=== PATIENT | female | born 2005 | race Caucasian/White ===

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

== ENCOUNTER 2023-01-19 06:06 | Outpatient (CLI) | payer BC, MEDICAID, SELFPAY ==
--- NOTE | 2023-01-19 06:30 | US_ITS ---
WS: [id number] INDICATION: Palpable nodule behind left ear TECHNIQUE: Ultrasound soft tissue area of concern FINDINGS: Ultrasound palpable area posterior to left ear. No suspicious cystic or solid lesions. Normal underlying scalp soft tissues. Incidental tiny lymph no de measuring 6 mm. US/US soft tissue head neck [id number] IMPRESSION: Incidental tiny lymph node measuring 6mm in this area. No other ronn picious findings.
== END 2023-01-19 06:07 | disposition home or self-care (01) ==
PROVIDERS: PCP Nurse Practitioner; Visit Provider Nurse Practitioner
DX: R59.1 Generalized enlarged lymph nodes (principal)
CPT/HCPCS: 76536

== ENCOUNTER → 2023-06-20 09:30 | Outpatient (BNVA) | payer BC, MEDICAID, SELFPAY | PROVIDERS: PCP Nurse Practitioner; Visit Provider Nurse Practitioner Women's Health | DX: Z11.3 Encounter for screening for infections with a predominantly sexual mode of transmission (principal) | CPT/HCPCS: 87491; 87591 ==

== ENCOUNTER → 2024-01-11 09:08 | Outpatient (BNVA) | payer BC, MEDICAID, SELFPAY | PROVIDERS: PCP Nurse Practitioner Family; Visit Provider Nurse Practitioner Family | DX: F41.9 Anxiety disorder, unspecified (principal); D64.9 Anemia, unspecified; K59.04 Chronic idiopathic constipation; N76.0 Acute vaginitis; B96.89 Other specified bacterial agents as the cause of diseases classified elsewhere; Z79.899 Other long term (current) drug therapy; Z13.6 Encounter for screening for cardiovascular disorders | CPT/HCPCS: 80053; 80061; 81025; 82728; 83036; 83550; 84443; 85025; 87070; 87205 ==

== ENCOUNTER → 2024-01-17 08:19 | Outpatient (BNVA) | payer BC, MEDICAID, SELFPAY | PROVIDERS: PCP Nurse Practitioner Family; Visit Provider Nurse Practitioner Family | DX: K59.04 Chronic idiopathic constipation (principal); Z79.899 Other long term (current) drug therapy | CPT/HCPCS: 80053; 84439; 84443 ==

== ENCOUNTER 2024-01-29 06:07 | Outpatient (CLI) | payer BC, MEDICAID, SELFPAY ==
--- NOTE | 2024-01-29 06:45 | US_ITS ---
WS: [id number] Complete ABDOMINAL ULTRASOUND HISTORY: R74.8 - Abnormal levels of other serum enzymes COMPARISON: None available. Liver: 16.6 cm in length. Normal size liver and echogenicity. No bile duct dilatation or mass. Portal Vein: Normal hepatopetal flow with monophasic waveform. Gallbladder: Normally distended gallbladder with no stones or wall thickening. CBD: 0.3 cm Pancreas: Normal size and echogenicity. Right kidney: 11.2 cm x 5.6 x 5.2 cm. Cortex:1.0 cm. Normal size and echogenicity. No hydronephrosis or mass. Mild splitting of the renal pelvis. No obstr uction or hydronephrosis. Left kidney: 10.7 cm x 5.8 cm x 4.3 cm. Cortex: 1.1 cm. Normal size and echogenicity. No hydronephrosis or mass. Spleen: 11.3 cm. Normal size and echogenicity. Aorta and IVC: Unremarkable abdominal aorta and IVC. US/US abdomen complete* [id number] Impression: Normal complete abdomen ultrasound.
== END 2024-01-29 06:08 | disposition home or self-care (01) ==
LOC: RAD 06:07
PROVIDERS: PCP Nurse Practitioner Family; Visit Provider Nurse Practitioner Family
DX: R74.8 Abnormal levels of other serum enzymes (principal); R53.83 Other fatigue
CPT/HCPCS: 76700

== ENCOUNTER → 2024-02-07 08:23 | Outpatient (BNVA) | payer BC, MEDICAID, SELFPAY | PROVIDERS: PCP Nurse Practitioner Family; Visit Provider Nurse Practitioner Family | DX: R74.8 Abnormal levels of other serum enzymes (principal); E04.1 Nontoxic single thyroid nodule; D58.2 Other hemoglobinopathies; Z79.899 Other long term (current) drug therapy | CPT/HCPCS: 80053; 81003; 82306; 82308; 82310; 82607; 83970; 84100; 85025; 86376 ==

== ENCOUNTER 2024-02-14 06:01 | Outpatient (CLI) | payer BC, MEDICAID, SELFPAY ==
--- NOTE | 2024-02-14 06:15 | US_ITS ---
WS: [id number] THYROID ULTRASOUND HISTORY: E04.1 - Nontoxic single thyroid nodule COMPARISON: None available. Right lobe: 1.5 cm x 1.5 cm x 5.0 cm (w x ap x l). Volume: 5.4 cm3. Normal sized thyroid. There is a group of what appears to be colloid cysts along the mid to lower RIG HT thyroid. The entire cluster measures 0.8 x 1.9 x 0.5 cm. There are small comet tail artifacts. No solid mass or increased vascularity. Left lobe: 1.4 cm x 1.0 cm x 4.8 cm (w x ap x l). Volume: 3.2 cm3. Numerous scattered hypoechoic nodules with comet tail artifacts throughout the gland. These are all s ubcentimeter. Isthmus: 0.2 cm. US/US thyroid [id number] IMPRESSION: 1. TI-RADS 2. 2. Bilateral colloid cyst within each thyroid lobe. No additional ultrasound e valuation necessary.
== END 2024-02-14 06:02 | disposition home or self-care (01) ==
LOC: RAD 06:01
PROVIDERS: PCP Nurse Practitioner Family; Visit Provider Nurse Practitioner Family
DX: E04.1 Nontoxic single thyroid nodule (principal)
CPT/HCPCS: 76536; 87070; 87205

== ENCOUNTER 2024-03-05 06:30 | Outpatient (CLI) | payer BC, MEDICAID, SELFPAY ==
--- NOTE | 2024-03-05 07:15 | US_ITS ---
WS: [id number] US transvaginal [id number] HISTORY: R10.2 - Pelvic and perineal pain COMPARISON: None available. Uterus: 6.8 cm x 4.8 cm x 4.0 cm. Normal size anteverted uterus. No fibroid or mass. Endometrium: 0.7 cm. Normal. Right ovary: 2.6 cm x 2.4 cm x 1.5 cm. Normal size and vascularity, no cystic or solid masses. Severa l small follicles in the ovary. Left ovary: 4.3 cm x 2.6 cm x 3.7 cm. LEFT ovary slightly enlarged. There are several small follicles . The enlargement and slight nodularity may be due to a ruptured corpus luteum cyst. No free fluid. No free fluid in the cul-de-sac. US/US transvaginal [id number] IMPRESSION: 1. LEFT ovary is just slightly enlarged and lobulated. May be due to an involu ting corpus luteal cyst. If patient continues to have pain consider follow-up t ransvaginal pelvic ultrasound evaluation in 2 to 3 months. 2. Normal endometrium.
== END 2024-03-05 06:31 | disposition home or self-care (01) ==
LOC: RAD 06:30
PROVIDERS: PCP Nurse Practitioner Family; Visit Provider Nurse Practitioner Family
DX: R10.2 Pelvic and perineal pain (principal); N83.8 Other noninflammatory disorders of ovary, fallopian tube and broad ligament
CPT/HCPCS: 76830

== ENCOUNTER → 2024-04-30 09:04 | Outpatient (BNVA) | payer SELFPAY | PROVIDERS: PCP Nurse Practitioner Family; Referring Provider Nurse Practitioner Family; Visit Provider Obstetrics & Gynecology | DX: N92.6 Irregular menstruation, unspecified (principal); R39.9 Unspecified symptoms and signs involving the genitourinary system | CPT/HCPCS: 81000; 81025 ==

== ENCOUNTER → 2024-07-28 09:14 | Outpatient (BNVA) | payer OTHER, BC, SELFPAY | PROVIDERS: PCP Nurse Practitioner Family; Visit Provider Nurse Practitioner Family | DX: Z34.90 Encounter for supervision of normal pregnancy, unspecified, unspecified trimester (principal); Z3A.00 Weeks of gestation of pregnancy not specified | CPT/HCPCS: 81025; 84702; 84703 ==

== ENCOUNTER 2024-08-15 18:02 | Emergency (ER) | payer OTHER, MEDICAID, SELFPAY ==
[2024-08-15 18:13] VITALS: BP 110/71; PULSE 68; RESP 14; TEMP 26.6; O2SAT 100
[2024-08-15 20:42] LABS: Basophils % 0.3 %; Eosinophils # 0.1 10^3/uL (0.0-0.8); Eosinophils % 1.1 %; Hematocrit 43.5 % (36-47); Lymphocytes # 2.3 10^3/uL (1.5-6.5); Lymphocytes % 17.8 %; Mean Corpuscular HGB Conc 33.8 g/dL (30-55); Mean Corpuscular Hemoglobin 33.3 pg (27-33); Mean Corpuscular Volume 98.4 fl (85-98); Mean Platelet Volume 10.5 fL (7.4-10.4); Monocytes # 0.5 10^3/uL (0.2-0.9); Monocytes % 3.9 %; Neutrophils # 9.88 10^3/uL (1.8-8.0); Neutrophils % 76.5 %; Nucleated Red Blood Cells % 0 %; Platelet Count 226 10^3/cmm (157-399); Red Blood Count 4.42 10^6/uL (3.85-5.65); Red Cell Distribution Width 11.6 % (12.1-15.1); White Blood Count 12.92 10^3/uL (4.5-13.0)
[2024-08-15 21:14] LABS: Alanine Aminotransferase 13 U/L (0-33); Albumin Level 4.5 g/dL (3.5-5.2); Alkaline Phosphatase 189 U/L (35-105); Anion Gap 15.6 (5-19); Aspartate Amino Transferase 16 U/L (0-32); Blood Urea Nitrogen 7 mg/dL (6-20); Calcium 9.9 mg/dL (8.5-10.5); Carbon Dioxide 23 mmol/L (22-29); Chloride 104 mmol/L (98-107); Creatinine Clr Calc Pharmacy 185.6321; Globulin 2.9 g/dL (1.3-4.6); Glomerular Filtration Rate 157.3 mL/min (90-130); Glucose 104 mg/dL (65-115); Osmolality Calculated 286 mOsm/kg (285-295); Potassium 3.6 mmol/L (3.5-5.1); Sodium 139 mmol/L (136-145); Total Bilirubin 0.2 mg/dL (0.15-1.2); Total Protein 7.4 g/dL (6.6-8.7)
[2024-08-15 21:28] VITALS: BP 143/81; PULSE 90; RESP 18; O2SAT 100
--- NOTE | 2024-08-15 21:30 | USR_ITS ---
PROCEDURE INFORMATION: Exam: US First Trimester, Transabdominal and US , Transvaginal Exam date and time: 08/15/2024 11:24 PM Age: 18 years old Clinical indication: Lmp or gestational age (in weeks): 6w4d; Antepartum complications; ; Patient states not bleeding anymore; Additional info: Cramping/spotting x2 weeks LABS AND CLINICAL REPORTS: Gestational age (Established): 6 w 2 d Estimated due date (Established): 04/08/2025 TECHNIQUE: Imaging protocol: Real-time transabdominal obstetrical ultrasound of the maternal pelvis and a first trimester , less than 14 weeks 0 days, with image documentation. Transvaginal imaging was used for better evaluation of the fetus, adnexa, and/or cervix. COMPARISON: US abdomen complete* [id number] 01/29/2024 6:29 AM FINDINGS: GESTATION: Gestation: Live intrauterine gestation. Yolk sac is unremarkable. Embryo/ cardiac activity (BPM): 141 bpm Extra-embryonic membranes/Placenta: Small hypoechoic fluid collection adjacent to the gestational sac measuring 3 x 6 mm likely representing a subchorionic hemorrhage. Amniotic/Chorionic fluid: Amniotic and extra-amniotic fluid are normal for gestational age. BIOMETRY: Gestational age (AUA): 6 weeks and 4 days [place] rump length (CRL): 0.68 cm MATERNAL: Uterus: Unremarkable. Cervix: Cervical length measures 3.1 cm. Right ovary/adnexa: Unremarkable. Left ovary/adnexa: Obscured by lack of adequate acoustic window. Intraperitoneal space: No intraperitoneal free fluid. US/US OB <= 14 weeks fetus [id number] IMPRESSION: 1. Live intrauterine gestation with an estimated age of 6 weeks and 4 days. 2. Small subchorionic hemorrhage.
[2024-08-15 21:32] LABS: Bilirubin Urine Negative (Negative); Blood Urine Negative (Negative); Glucose Urine UA Negative (Normal); Ketones Urine Negative (Negative); Leukocyte Esterase Urine 2+ (Negative); Nitrate Urine Negative (Negative); Protein Urine Negative (Negative); Specific Gravity, Urine 1.004 (1.005-1.030); Urine Appearance Clear (CLEAR); Urine Color Yellow (Yellow); Urobilinogen Urine 0.2 mg/dL (Negative)
--- NOTE | 2024-08-15 21:32 | ED_ITS ---
HPI - Abdominal Pain 2 General: Chief Complaint: Abdominal Pain Stated Complaint: cramping 6 wk preg Time Seen by Provider: 08/15/24 21:12 Source: patient Mode of arrival: ambulatory Limitations: no limitations History of Present Illness: Patient is a 18-year-old female who presents the emergency department complaining of lower abdominal cramping and vaginal bleeding for the past 2 weeks, intermittently. Notes that the bleeding has been light, she has not been bleeding through any pads. Of note, states that she is 8 weeks based off of last normal menstrual period. States that she has seen her OB, but this was just for routine evaluation she has not had any ultrasound done. States that she tried to contact them today but was unable to get in, so she came to the ED. This is her first , she is A0. Denies any pertinent personal past medical history other than ovarian cysts. She still has her appendix and gallbladder. She does not report any specific alleviating or exacerbating factors, and overall does note that the pain is mild. MD elicited complaint: abdominal pain Pertinent past history: other (ovarian cysts) Onset (ago): week(s) (2) Pain Consistency: constant Location: RLQ, LLQ and Suprapubic Severity: mild Quality: cramping Radiation: none Migration to: no migration Exacerbating factors: nothing Relieving factors: nothing Context: other (, 8 weeks) Associated Symptoms: Reports GI cramping; Denies bloating, change in stool character, chills, constipation, diarrhea, dysuria, fever(s), hematochezia, nausea and vomiting Related Data Previous Rx's ?Medication ?Instructions ?Recorded mecobalamin (vitamin B12) 1,000 1,000 mcg sublingual D AILY 30 days 02/26/24 mcg disintegrating #30 tabs tablet,sublingual cholecalciferol (vitamin D3) 1,250 50,000 unit PO SHAUNA Y #12 caps 05/15/24 mcg (50,000 unit) capsule escitalopram oxalate 10 mg tablet See Rx Instructions .Route 05/15/24 .COMPLEX #90 tabs amoxicillin 875 mg tablet 875 mg PO BID #14 tabs 07/28 nitrofurantoin 100 mg PO BID 10 days #20 ca ps 08/16/24 monohydrate/macrocrystals 100 mg capsule (Macrobid) Allergies Allergy/AdvReac Type Severity Reaction Status Date / Time No Known Allergies Allergy Verified 08/15/24 18:19 Review of Systems 2 General: Reports: 10 or more systems reviewed and unremarkable except in HPI and below Const: Denies: fever(s), chills, change in appetite, change in weight or diaphoresis ENMT: Denies: throat pain or hoarseness Card: Denies: chest pain, palpitations or lightheadedness Resp: Denies: dyspnea, productive cough or wheezing GI: Reports: abdominal pain and GI cramping; Denies: nausea, vomiting, diarrhea, constipation, bloating, change in stool character or hematochezia : Reports: vaginal bleeding; Denies: flank pain, difficulty voiding, dysuria, urinary frequency or urinary urgency Musc: Denies: neck pain or back pain Skin/Breast: Denies: rash or new lesions Neuro: Denies: headache(s) or dizziness PFSH ED 2 PFSH: Medical History Acute bacterial sinusitis Fever blister Corpus luteum cyst of left ovary Pelvic pain Vitamin D deficiency Vaginal yeast infection Elevated hemoglobin Vaginal discharge Thyroid cyst Fatigue Elevated alkaline phosphatase level Anemia Encounter for screening for cardiovascular disorders Medication management Chronic idiopathic constipation Lower respiratory infection No pertinent past medical history neghx: htn,dm,thyroid,dvt/pe PCP: Libia Altamirano History of recurrent vaginal discharge Surgical History H/O removal of cyst (~2014) cyst on left hand, fifth finger removed Family History Family/Other Cancer great uncle, leukemia, paternal Mother Hypertension Hyperlipidemia Grandfather Stroke maternal Grandmother Hypertension maternal Hyperlipidemia maternal Diabetes maternal Denies family history of Colon cancer Ovarian cancer Breast cancer Uterine cancer Thyroid disease Social History Smoking and tobacco/nicotine status: never used tobacco/nicotine Alcohol intake: never Substance/Drug Use: never Adopted: No Lives independently: Yes Household members: family Housing: House Physical Exam 2 Const: COMMON NORMALS: no acute distress, average body habitus, patient oriented x3, no limitations, healthy appearing, alert and well nourished G ENERAL APPEARANCE: cooperative and comfortable ORIENTATION/CONSCIOUSNESS: Yes awake Eye: COMMON NORMALS: Equal, round and reactive pupils present, EOMs intact bilaterally, conjunctivae normal and normal visual calderon by confrontation C ONJUNCTIVA: Yes conjunctivae normal PUPIL: Yes Equal, round and reactive pupils present Neck/C-Spine: COMMON NORMALS: full ROM, supple, no meningeal signs and no JVD Resp: COMMON NORMALS: normal respiratory effort, No retractions, No use of accessory muscles and clear to auscultation bilaterally AUSCULTATION: clear to auscultation bilaterally, no crackles, no rales, no rhonchi and no wheezes Cardio: COMMON NORMALS: no JVD, regular rate, regular rhythm, S1 normal heart sound present, S2 normal heart sound present, No gallops present (Cardio), No clicks present (Cardio), No murmurs present (Cardio), No rub (Cardio) and Peripheral pulses 2+ throughout RATE: regular rate RHYTHM: regular rhythm HEART SOUNDS: S1 normal heart sound present and S2 normal heart sound present PERIPHERAL PULSES: Peripheral pulses 2+ throughout GI: COMMON NORMALS: Normal to inspection, nondistended, normoactive bowel sounds present, Soft to palpation, No hepatosplenomegaly present and no masses AUSCULTATION: Yes normoactive bowel sounds PALPATION: Yes Soft to palpation, Yes Tenderness to palpation present (GI) (Suprapubic) Details: LLQ and RLQ, No Guarding due to palpation present (GI), No Rigid due to palpation and Yes No hepatosplenomegaly present RECTAL EXAM: deferred OTHER: Negative McBurney's point tenderness. Negative Rovsing sign. Negative heel strike. : COMMON NORMALS: Yes no CVA tenderness BLADDER/KIDNEY EXAM: Yes no CVA tenderness Back/Pelvis: COMMON NORMALS: no CVA tenderness Extremity: COMMON NORMALS: normal to inspection and full ROM Neuro: COMMON NORMALS: patient oriented x3, moves all extremities, no focal motor deficits and no sensory deficits noted SENSORIUM/ORIENTATION: Yes alert MENINGEAL SIGNS: Yes no meningeal signs Psych: COMMON NORMALS: mental status grossly normal, cooperative and speech normal SPEECH: Yes normal speech Skin: COMMON NORMALS: no rashes or lesions noted GENERAL SKIN EXAM: no rashes or lesions noted Course 2 Vital Signs: Vital signs: Vital Signs Temperature 79.9 F L 08/15/24 18:13 Pulse Rate 90 08/15/24 21:28 Respiratory Rate 18 08/15/24 21:28 Blood Pressure 143/81 08/15/24 21:28 Pulse Oximetry 100 08/15/24 21:28 Oxygen Delivery Me thod Room Air 08/15/24 18:13 MDM - Abdominal Pain Medical Decision Making Patient reporting that she was 7 to 8 weeks based off last normal menstrual period, has been having a couple of weeks of very light spotting and some abdominal cramping. This is her first . Vitals have been stable. On exam she does have some tenderness to palpation of the lower abdomen, my clinical exam for an acute appendicitis was negative and I do not suspect this at this time due to the chronicity of symptoms and lack of physical exam findings. Hemoglobin was normal on her CBC, the rest of her labs unremarkable. She states that she recently was treated for UTI during , finished antibiotics she is not having any urinary symptoms at this time. Her urine still had some leukocytes and white blood cells and being that she is we will go ahead and treat for UTI during with Macrobid. Her ultrasound did show intrauterine gestation of 6 weeks and 4 days without any complications other than a very small subchorionic hemorrhage. I do not see any emergent region at this time to consult OB, patient has remained stable other than reporting some nausea, of which we gave Zofran for. Discussed tricked return precautions with the patient, she verbalized understanding. Discussed case with Dr. Mukherjee. Lab Data 08/15/24 19:42 08/15/24 19:42 Labs/Radiology: Radiology Impressions Ultrasound 08/15/24 21:30 IMPRESSION: 1. Live intrauterine gestation with an estimated age of 6 weeks and 4 days. 2. Small subchorionic hemorrhage. Laboratory Results WBC 12.92 10^3/uL (4.5-13.0) 08/15/24 19:42 RBC 4.42 10^6/uL (3.85-5.65) 08/15/24 19:42 Hgb 14.70 g/dL (12.4-14.8) 08/15/24 19:42 Hct 43.5 % (36-47) 08/15/24 19:42 MCV 98.4 fl (85-98) H 08/15/24 19:42 MCH 33.3 pg (27-33) H 08/15/24 19:42 MCHC 33.8 g/dL (30-55) 08/15/24 19:42 RDW 11.6 % (12.1-15.1) L 08/15/24 19:42 Plt Count 226 10^3/cmm (157-399) 08/15/24 19:42 MPV 10.5 fL (7.4-10.4) H 08/15/24 19:42 Neut % (Auto) 76.5 % 08/15/24 19:42 Lymph % (Auto) 17.8 % 08/15/24 19:42 Ritchie % (Auto) 3.9 % 08/15/24 19:42 Eos % (Auto) 1.1 % 08/15/24 19:42 Baso % (Auto) 0.3 % 08/15/24 19:42 Neut # (Auto) 9.88 10^3/uL (1.8-8.0) H 08/15/24 19:42 Lymph # (Auto) 2.3 10^3/uL (1.5-6.5) 08/15/24 19:42 Ritchie # (Auto) 0.5 10^3/uL (0.2-0.9) 08/15/24 19:42 Eos # (Auto) 0.1 10^3/uL (0.0-0.8) 08/15/24 19:42 Baso # (Auto) 0.0 10^3/uL (0.0-0.1) 08/15/24 19:42 Nucleated RBC % (auto) 0 % 08/15/24 19:42 Nucleated RBCs # 0.0 /100WBC 08/15/24 19:42 Sodium 139 mmol/L (136-145) 08/15/24 19:42 Potassium 3.6 mmol/L (3.5-5.1) 08/15/24 19:42 Chloride 104 mmol/L (98-107) 08/15/24 19:42 Carbon Dioxide 23 mmol/L (22-29) 08/15/24 19:42 Anion Gap 15.6 (5-19) 08/15/24 19:42 BUN 7 mg/dL (6-20) 08/15/24 19:42 Creatinine 0.5 mg/dL (0.5-0.9) 08/15/24 19:42 GFR Calculation 157.3 mL/min (90-130) H 08/15/24 19:42 Glucose 104 mg/dL (65-115) 08/15/24 19:42 Calculated Osmolality 286 mOsm/kg (285-295) 08/15/24 19:42 Calcium 9.9 mg/dL (8.5-10.5) 08/15/24 19:42 Total Bilirubin 0.2 mg/dL (0.15-1.2) 08/15/24 19:42 AST 16 U/L (0-32) 08/15/24 19:42 ALT 13 U/L (0-33) 08/15/24 19:42 Alkaline Phosphatase 189 U/L (35-105) H 08/15/24 19:42 Total Protein 7.4 g/dL (6.6-8.7) 08/15/24 19:42 Albumin 4.5 g/dL (3.5-5.2) 08/15/24 19:42 Globulin 2.9 g/dL (1.3-4.6) 08/15/24 19:42 Ser , Semi-Qnt 22269.00 mIU/mL 08/15/24 19:42 Urine Color Yellow (Yellow) 08/15/24 21:21 Urine Appearance Clear (CLEAR) 08/15/24 21:21 Urine pH 7.0 (5-7) 08/15/24 21:21 Ur Specific [place] 1.004 (1.005-1.030) L 08/15/24 21:21 Urine Protein Negative (Negative) 08/15/24 21:21 Urine Glucose (UA) Negative (Normal) 08/15/24 21:21 Urine Ketones Negative (Negative) 08/15/24 21:21 Urine Blood Negative (Negative) 08/15/24 21:21 Urine Nitrate Negative (Negative) 08/15/24 21:21 Urine Bilirubin Negative (Negative) 08/15/24 21:21 Urine Urobilinogen 0.2 mg/dL (Negative) 08/15/24 21:21 Ur Leukocyte Esterase 2+ (Negative) A 08/15/24 21:21 Urine RBC 0-2 /hpf (0-2) 08/15/24 21:21 Urine WBC 6-10 /hpf (0-5) 08/15/24 21:21 Ur Squamous Epith Cells 0-5 /hpf (0-5) 08/15/24 21:21 Amorphous Sediment Not Reportable 08/15/24 21:21 Urine Bacteria None seen /hpf (NONE) 08/15/24 21:21 Hyaline Casts 0-4 /lpf H 08/15/24 21:21 All radiology interpretation(s) finalized by discharge Discharge Plan Discharge Patient Disposition: Home Clinical Impression: 6 weeks gestation of , Abdominal pain during intrauterine , Urinary tract infection during intrauterine Condition: Stable Prescriptions: New nitrofurantoin monohyd/m-cryst [Macrobid] 100 mg capsule 100 mg PO BID 10 Days Qty: 20 0RF Rx Instructions: must administer with a meal/food No Action mecobalamin (vitamin B12) 1,000 mcg tablet,disintegrating 1,000 mcg sublingual DAILY 30 Days Qty: 30 2RF Rx Instructions: place tablet under tongue and allow to dissolve for at least30 secs before swallowing amoxicillin 875 mg tablet 875 mg PO BID Qty: 14 0RF Rx Instructions: Start medication if symptoms worsen cholecalciferol (vitamin D3) 1,250 mcg (50,000 unit) capsule 50,000 unit PO DAILY Qty: 12 1RF escitalopram oxalate 10 mg tablet See Rx Instructions .ROUTE .COMPLEX Qty: 90 0RF Dose Instruction: TAKE 1 TABLET BY MOUTH DAILY Rx Instructions: TAKE 1 TABLET BY MOUTH DAILY Discharge Orders: Discharge ED (Routine); Ordered 08/16/24 Ordered By: Fco Cazares Referrals: NARDA Sol, PSYCHIATRIC AIDES TEACHER [Primary Care Provider] - Patient Instructions: Abdominal Pain in (ED) Activity Restrictions/Additional Instructions: Zofran for nausea. Antibiotics for your UTI. Drink plenty of fluids. Please return with any worsening bleeding, worsening pain, feeling like you are to pass out, or any other concerns. Please follow-up closely with your OB early next week. Print Language: Vietnamese Coding Level of Care Code ED Electron Beam Photo Mask Maker for Cathy Sung
[2024-08-15 21:34] LABS: Add Urine Microscopic? YES; Bacteria Urine None Seen /hpf; Hyaline Casts Urine 0-4 /lpf; RBC Urine 0-2 /hpf (0-2); Squamous Epithelial Cell Urine 0-5 /hpf (0-5)
[2024-08-15 21:40] LABS: Add Urine Culture? No
[2024-08-16] MEDS: ondansetron 4 MG Tablet PO ×3 (01:23→01:24)
[2024-08-16] MEDS: nitrofurantoin SR (BID) 100 mg Capsule PO (01:24)
== END 2024-08-16 01:54 | disposition home or self-care (01) ==
PROVIDERS: Emergency Medicine; Emergency Provider Physician Assistant; PCP Nurse Practitioner Family
DX: O23.41 Unspecified infection of urinary tract in pregnancy, first trimester (principal); N39.0 Urinary tract infection, site not specified; Z3A.01 Less than 8 weeks gestation of pregnancy
CPT/HCPCS: 36415; 76801; 80053; 81001; 84702; 85025; 99284; Q0162

== ENCOUNTER 2024-08-20 12:52 | Emergency (ER) | payer OTHER, MEDICAID, SELFPAY ==
[2024-08-20 13:47] VITALS: BP 106/63; PULSE 104; RESP 17; TEMP 36.8; O2SAT 100; BMI 27.4
[2024-08-20 13:47] LABS: Basophils % 0.3 %; Eosinophils % 0.4 %; Hematocrit 42.9 % (36-47); Lymphocytes # 0.4 10^3/uL (1.5-6.5); Lymphocytes % 4.3 %; Mean Corpuscular HGB Conc 34.3 g/dL (30-55); Mean Corpuscular Hemoglobin 33.3 pg (27-33); Mean Corpuscular Volume 97.1 fl (85-98); Mean Platelet Volume 9.9 fL (7.4-10.4); Monocytes # 0.4 10^3/uL (0.2-0.9); Monocytes % 3.8 %; Neutrophils # 8.87 10^3/uL (1.8-8.0); Neutrophils % 90.9 %; Nucleated Red Blood Cells % 0 %; Platelet Count 161 10^3/cmm (157-399); Red Blood Count 4.42 10^6/uL (3.85-5.65); Red Cell Distribution Width 11.6 % (12.1-15.1); White Blood Count 9.76 10^3/uL (4.5-13.0)
[2024-08-20 14:30] LABS: Alanine Aminotransferase 13 U/L (0-33); Albumin Level 4.3 g/dL (3.5-5.2); Alkaline Phosphatase 126 U/L (35-105); Anion Gap 15.8 (5-19); Aspartate Amino Transferase 16 U/L (0-32); Blood Urea Nitrogen 6 mg/dL (6-20); Calcium 9.3 mg/dL (8.5-10.5); Carbon Dioxide 23 mmol/L (22-29); Chloride 102 mmol/L (98-107); Creatinine Clr Calc Pharmacy 181.7221; Glomerular Filtration Rate 157.3 mL/min (90-130); Glucose 102 mg/dL (65-115); Osmolality Calculated 282 mOsm/kg (285-295); Potassium 3.8 mmol/L (3.5-5.1); Sodium 137 mmol/L (136-145); Total Bilirubin 0.5 mg/dL (0.15-1.2); Total Protein 7.3 g/dL (6.6-8.7)
--- NOTE | 2024-08-20 15:45 | ED_ITS ---
HPI - Abdominal Pain 2 General: Chief Complaint: Abdominal Pain Stated Complaint: abd pain (7 wks preg) Time Seen by Provider: 08/20/24 15:36 History of Present Illness: Patient presents to the ER with reports of low abdominal pain just below her umbilicus constant every day for the last couple weeks. Patient says she is approximately 7 weeks . Patient does states she has nausea and vomiting every day even though she takes her Zofran as prescribed. She has had a least 2 UTIs here recently and not been able to finish either medicine that she has been prescribed for them secondary to making her nausea vomiting worse. Related Data Date of Last Menstrual Period: 07/02/24 Previous Rx's ?Medication ?Instructions ?Recorded mecobalamin (vitamin B12) 1,000 1,000 mcg sublingual D AILY 30 days 02/26/24 mcg disintegrating #30 tabs tablet,sublingual cholecalciferol (vitamin D3) 1,250 50,000 unit PO SHAUNA Y #12 caps 05/15/24 mcg (50,000 unit) capsule escitalopram oxalate 10 mg tablet See Rx Instructions .Route 05/15/24 .COMPLEX #90 tabs cephalexin 500 mg capsule 500 mg PO Q6H 7 days #28 cap s 08/20/24 metoclopramide HCl 5 mg tablet 5 mg PO Q6H PRN nausea and 08/20/24 (Reglan) vomiting #30 tabs Allergies Allergy/AdvReac Type Severity Reaction Status Date / Time No Known Allergies Allergy Verified 08/20/24 13:51 Review of Systems 2 General: Reports: 10 or more systems reviewed and unremarkable except in HPI and below PFSH ED 2 PFSH: Medical History Acute bacterial sinusitis Fever blister Corpus luteum cyst of left ovary Pelvic pain Vitamin D deficiency Vaginal yeast infection Elevated hemoglobin Vaginal discharge Thyroid cyst Fatigue Elevated alkaline phosphatase level Anemia Encounter for screening for cardiovascular disorders Medication management Chronic idiopathic constipation Lower respiratory infection No pertinent past medical history neghx: htn,dm,thyroid,dvt/pe PCP: Libia Altamirano History of recurrent vaginal discharge Surgical History H/O removal of cyst (~2014) cyst on left hand, fifth finger removed Family History Family/Other Cancer great uncle, leukemia, paternal Mother Hypertension Hyperlipidemia Grandfather Stroke maternal Grandmother Hypertension maternal Hyperlipidemia maternal Diabetes maternal Denies family history of Colon cancer Ovarian cancer Breast cancer Uterine cancer Thyroid disease Social History Smoking and tobacco/nicotine status: never used tobacco/nicotine Alcohol intake: never Substance/Drug Use: never Adopted: No Lives independently: Yes Household members: family Housing: House Female Reproductive History: Date of last menstrual period: 07/02/24 Physical Exam 2 Const: COMMON NORMALS: no acute distress, average body habitus, patient oriented x3, no limitations, healthy appearing, alert and well nourished HENMT: COMMON NORMALS: normocephalic, atraumatic, hearing grossly normal bilaterally, external ears normal and Normal external nose present HEAD & SCALP: normocephalic and atraumatic NOSE: Normal external nose present E XTERNAL EAR: Yes external ears normal Neck/C-Spine: COMMON NORMALS: no JVD Chest: COMMONS NORMALS: normal inspection of the chest and normal palpation of entire chest wall Resp: COMMON NORMALS: normal respiratory effort, No retractions, No use of accessory muscles and clear to auscultation bilaterally AUSCULTATION: clear to auscultation bilaterally Cardio: COMMON NORMALS: no JVD, regular rate, regular rhythm, S1 normal heart sound present, S2 normal heart sound present, No gallops present (Cardio), No clicks present (Cardio), No murmurs present (Cardio) and No rub (Cardio) R ATE: regular rate RHYTHM: regular rhythm HEART SOUNDS: S1 normal heart sound present and S2 normal heart sound present GI: COMMON NORMALS: Normal to inspection, nondistended, normoactive bowel sounds present, Soft to palpation, No hepatosplenomegaly present and no masses; negative for non-tender (Mild tenderness to palpation just below the umbilicus and midline) PALPATION: Yes Soft to palpation and Yes No hepatosplenomegaly present Neuro: COMMON NORMALS: patient oriented x3 SENSORIUM/ORIENTATION: Yes alert Course 2 Vital Signs: Vital signs: Vital Signs Temperature 98.3 F 08/20/24 13:47 Pulse Rate 108 H 08/20/24 17:00 Respiratory Rate 17 08/20/24 13:47 Blood Pressure 119/75 08/20/24 16:54 Pulse Oximetry 100 08/20/24 17:00 Oxygen Delivery Me thod Room Air 08/20/24 17:00 MDM - Abdominal Pain Medical Decision Making Last week's ER visit was reviewed as well as lab work, physical exam and ultrasound, patient should DC the Macrobid and start the Keflex and Reglan. Patient be discharged home Medical Records I reviewed the patient's medical records. Lab Data I reviewed the patient's lab results. 08/20/24 13:40 08/20/24 13:40 Labs/Radiology: Laboratory Results WBC 9.76 10^3/uL (4.5-13.0) 08/20/24 13:40 RBC 4.42 10^6/uL (3.85-5.65) 08/20/24 13:40 Hgb 14.70 g/dL (12.4-14.8) 08/20/24 13:40 Hct 42.9 % (36-47) 08/20/24 13:40 MCV 97.1 fl (85-98) 08/20/24 13:40 MCH 33.3 pg (27-33) H 08/20/24 13:40 MCHC 34.3 g/dL (30-55) 08/20/24 13:40 RDW 11.6 % (12.1-15.1) L 08/20/24 13:40 Plt Count 161 10^3/cmm (157-399) 08/20/24 13:40 MPV 9.9 fL (7.4-10.4) 08/20/24 13:40 Neut % (Auto) 90.9 % 08/20/24 13:40 Lymph % (Auto) 4.3 % 08/20/24 13:40 [place] % (Auto) 3.8 % 08/20/24 13:40 Eos % (Auto) 0.4 % 08/20/24 13:40 Baso % (Auto) 0.3 % 08/20/24 13:40 Neut # (Auto) 8.87 10^3/uL (1.8-8.0) H 08/20/24 13:40 Lymph # (Auto) 0.4 10^3/uL (1.5-6.5) L 08/20/24 13:40 [place] # (Auto) 0.4 10^3/uL (0.2-0.9) 08/20/24 13:40 Eos # (Auto) 0.0 10^3/uL (0.0-0.8) 08/20/24 13:40 Baso # (Auto) 0.0 10^3/uL (0.0-0.1) 08/20/24 13:40 Nucleated RBC % (auto) 0 % 08/20/24 13:40 Nucleated RBCs # 0.0 /100WBC 08/20/24 13:40 Sodium 137 mmol/L (136-145) 08/20/24 13:40 Potassium 3.8 mmol/L (3.5-5.1) 08/20/24 13:40 Chloride 102 mmol/L (98-107) 08/20/24 13:40 Carbon Dioxide 23 mmol/L (22-29) 08/20/24 13:40 Anion Gap 15.8 (5-19) 08/20/24 13:40 BUN 6 mg/dL (6-20) 08/20/24 13:40 Creatinine 0.5 mg/dL (0.5-0.9) 08/20/24 13:40 GFR Calculation 157.3 mL/min (90-130) H 08/20/24 13:40 Glucose 102 mg/dL (65-115) 08/20/24 13:40 Calculated Osmolality 282 mOsm/kg (285-295) L 08/20/24 13:40 Calcium 9.3 mg/dL (8.5-10.5) 08/20/24 13:40 Total Bilirubin 0.5 mg/dL (0.15-1.2) 08/20/24 13:40 AST 16 U/L (0-32) 08/20/24 13:40 ALT 13 U/L (0-33) 08/20/24 13:40 Alkaline Phosphatase 126 U/L (35-105) H 08/20/24 13:40 Total Protein 7.3 g/dL (6.6-8.7) 08/20/24 13:40 Albumin 4.3 g/dL (3.5-5.2) 08/20/24 13:40 Globulin 3.0 g/dL (1.3-4.6) 08/20/24 13:40 Ser , Semi-Qnt 895098.00 mIU/mL 08/20/24 13:40 Urine Color Yellow (Yellow) 08/20/24 16:55 Urine Appearance Clear (CLEAR) 08/20/24 16:55 Urine pH 6.0 (5-7) 08/20/24 16:55 Ur Specific [place] 1.020 (1.005-1.030) 08/20/24 16:55 Urine Protein Negative (Negative) 08/20/24 16:55 Urine Glucose (UA) Negative (Normal) 08/20/24 16:55 Urine Ketones Negative (Negative) 08/20/24 16:55 Urine Blood Negative (Negative) 08/20/24 16:55 Urine Nitrate Negative (Negative) 08/20/24 16:55 Urine Bilirubin Negative (Negative) 08/20/24 16:55 Urine Urobilinogen 1.0 mg/dL (Negative) 08/20/24 16:55 Ur Leukocyte Esterase 2+ (Negative) A 08/20/24 16:55 Urine RBC 0-2 /hpf (0-2) 08/20/24 16:55 Urine WBC 11-20 /hpf (0-5) H 08/20/24 16:55 Ur Squamous Epith Cells 11-20 /hpf (0-5) H 08/20/24 16:55 Amorphous Sediment Not Reportable 08/20/24 16:55 Urine Bacteria 1+ /hpf (NONE) H 08/20/24 16:55 Hyaline Casts 0-4 /lpf H 08/20/24 16:55 All radiology interpretation(s) finalized by discharge Discharge Plan Discharge Patient Disposition: Home Clinical Impression: Urinary tract infection during intrauterine , Abdominal pain during intrauterine Condition: Stable Prescriptions: New cephalexin 500 mg capsule 500 mg PO Q6H 7 Days Qty: 28 0RF metoclopramide HCl [Reglan] 5 mg tablet 5 mg PO Q6H PRN (Reason: nausea and vomiting) Qty: 30 0RF Discontinued amoxicillin 875 mg tablet 875 mg PO BID Qty: 14 0RF Rx Instructions: Start medication if symptoms worsen nitrofurantoin monohyd/m-cryst [Macrobid] 100 mg capsule 100 mg PO BID 10 Days Qty: 20 0RF Rx Instructions: must administer with a meal/food No Action mecobalamin (vitamin B12) 1,000 mcg tablet,disintegrating 1,000 mcg sublingual DAILY 30 Days Qty: 30 2RF Rx Instructions: place tablet under tongue and allow to dissolve for at least30 secs before swallowing cholecalciferol (vitamin D3) 1,250 mcg (50,000 unit) capsule 50,000 unit PO DAILY Qty: 12 1RF escitalopram oxalate 10 mg tablet See Rx Instructions .ROUTE .COMPLEX Qty: 90 0RF Dose Instruction: TAKE 1 TABLET BY MOUTH DAILY Rx Instructions: TAKE 1 TABLET BY MOUTH DAILY Discharge Orders: Discharge ED (Routine); Ordered 08/20/24 Ordered By: Rivas Mukherjee Referrals: NARDA Sol, PRESCHOOL TEACHER ASSISTANT [Primary Care Provider] - 1 week Patient Instructions: Urinary Tract Infection in (ED) Activity Restrictions/Additional Instructions: 2 prescriptions have been sent to your pharmacy please start the Reglan and cephalexin as these medicines will help with your nausea and your urinary tract infection. Please push plenty of fluids. Please keep your appointment with your FORMSTONE FITTER for further evaluation treatment. Print Language: Korean Coding Level of Care Code ED Fitter / Welder for Cathy Sung
[2024-08-20] MEDS: METOCLOPRAMIDE HCL 10 MG/10 ML UDC 5 MG PO (16:51)
[2024-08-20 16:54] VITALS: BP 119/75; PULSE 112; O2SAT 95
[2024-08-20 17:00] VITALS: PULSE 108; O2SAT 100
[2024-08-20 17:17] LABS: Bilirubin Urine Negative (Negative); Blood Urine Negative (Negative); Glucose Urine UA Negative (Normal); Ketones Urine Negative (Negative); Leukocyte Esterase Urine 2+ (Negative); Nitrate Urine Negative (Negative); Protein Urine Negative (Negative); Urine Appearance Clear (CLEAR); Urine Color Yellow (Yellow)
[2024-08-20 17:19] LABS: Add Urine Microscopic? YES; Bacteria Urine 1+ /hpf; Hyaline Casts Urine 0-4 /lpf; RBC Urine 0-2 /hpf (0-2)
[2024-08-20 17:22] LABS: Add Urine Culture? No
[2024-08-20 17:57] VITALS: BP 104/59; PULSE 107; O2SAT 98
== END 2024-08-20 17:58 | disposition home or self-care (01) ==
PROVIDERS: Emergency Provider Emergency Medicine; PCP Nurse Practitioner Family
DX: O23.41 Unspecified infection of urinary tract in pregnancy, first trimester (principal); N39.0 Urinary tract infection, site not specified; Z3A.01 Less than 8 weeks gestation of pregnancy
CPT/HCPCS: 36415; 80053; 81001; 84702; 85025; 99283

== ENCOUNTER 2025-01-11 09:40 | Outpatient (CLI) | payer OTHER, MEDICAID, SELFPAY ==
[2025-01-11 09:49] VITALS: BMI 29.6
[2025-01-11 10:00] VITALS: BP 129/67; PULSE 80
[2025-01-11 10:14] LABS: Glucose Urine UA Negative (Normal); Nitrate Urine Negative (Negative); Specific Gravity, Urine 1.008 (1.005-1.030)
[2025-01-11 10:15] VITALS: BP 128/63; PULSE 78
[2025-01-11 10:30] VITALS: BP 125/57; PULSE 75
[2025-01-11 10:45] VITALS: BP 126/65; PULSE 77
[2025-01-11 11:15] VITALS: BP 113/59; PULSE 75
== END 2025-01-11 11:37 | disposition home or self-care (01) ==
LOC: OPOB 09:45 → OBGYN 09:46
PROVIDERS: PCP Nurse Practitioner Family; Visit Provider Family Medicine
DX: O26.899 Other specified pregnancy related conditions, unspecified trimester (principal); Z3A.00 Weeks of gestation of pregnancy not specified; R11.2 Nausea with vomiting, unspecified; R55 Syncope and collapse
CPT/HCPCS: 81001; 87086; 99211; Q0162

== ENCOUNTER 2025-03-25 10:10 | Outpatient (CLI) | payer MEDICAID, SELFPAY ==
[2025-03-25 10:08] VITALS: BMI 32.8
[2025-03-25 10:22] VITALS: BP 125/74; PULSE 107
[2025-03-25 10:37] VITALS: BP 117/64; PULSE 93
[2025-03-25 10:52] VITALS: BP 104/52; PULSE 88
[2025-03-25 11:07] VITALS: BP 99/53; PULSE 86
[2025-03-25 11:17] VITALS: BP 99/53; PULSE 86; RESP 16; O2SAT 98
== END 2025-03-25 11:17 | disposition home or self-care (01) ==
LOC: OPOB 10:10 → OBGYN 10:11
PROVIDERS: PCP Nurse Practitioner Family; Visit Provider Family Medicine
DX: O13.9 Gestational [pregnancy-induced] hypertension without significant proteinuria, unspecified trimester (principal); Z3A.00 Weeks of gestation of pregnancy not specified
CPT/HCPCS: 59025; 99211

== ENCOUNTER 2025-03-26 18:41 | Outpatient (CLI) | payer MEDICAID, SELFPAY ==
[2025-03-26] VITALS (10 sets, daily range): BP systolic 129–148; BP diastolic 66–80; PULSE 77–107; RESP 16; TEMP 36.8; O2SAT 99; BMI 32.8
[2025-03-26 19:58] LABS: Hematocrit 36.0 % (36-47); Hemoglobin 11.80 g/dL (11.27-16.99); Mean Corpuscular HGB Conc 32.8 g/dL (30-55); Mean Corpuscular Hemoglobin 31.7 pg (27-33); Mean Corpuscular Volume 96.8 fl (85-98); Nucleated Red Blood Cells % 0 %; Platelet Count 239 10^3/cmm (157-399); Red Blood Count 3.72 10^6/uL (3.85-5.65); White Blood Count 11.40 10^3/uL (3.29-11.43)
[2025-03-26 20:01] LABS: Glucose Urine UA Negative (Normal); Nitrate Urine Negative (Negative); Specific Gravity, Urine 1.008 (1.005-1.030)
[2025-03-26 20:03] LABS: Add Urine Microscopic? YES
[2025-03-26 20:14] LABS: Alanine Aminotransferase 11 U/L (0-33); Albumin Level 3.7 g/dL (3.5-5.2); Alkaline Phosphatase 275 U/L (35-105); Anion Gap 15.7 (5-19); Aspartate Amino Transferase 17 U/L (0-32); Blood Urea Nitrogen 8 mg/dL (6-20); Calcium 9.3 mg/dL (8.5-10.5); Carbon Dioxide 21 mmol/L (22-29); Chloride 104 mmol/L (98-107); Creatinine Clr Calc Pharmacy 163.7675; Globulin 3.2 g/dL (1.3-4.6); Glucose 100 mg/dL (65-115); Osmolality Calculated 282 mOsm/kg (285-295); Potassium 3.7 mmol/L (3.5-5.1); Sodium 137 mmol/L (136-145); Total Protein 6.9 g/dL (6.6-8.7); Uric Acid 3.3 mg/dL (2.4-5.7)
[2025-03-26 20:19] LABS: UPRO/UCREAT Ratio 0.11 mg/mg CR
[2025-03-26 20:26] LABS: UA Slide Review UA Slide Review Perf
== END 2025-03-26 20:48 | disposition home or self-care (01) ==
LOC: OPOB 18:42 → OBGYN 18:42
PROVIDERS: PCP Nurse Practitioner Family; Visit Provider Family Medicine
DX: O26.899 Other specified pregnancy related conditions, unspecified trimester (principal); Z3A.00 Weeks of gestation of pregnancy not specified; R51.9 Headache, unspecified; H53.8 Other visual disturbances
CPT/HCPCS: 59025; 80053; 81001; 82570; 84156; 84550; 85025; 87086; 99211

== ENCOUNTER 2025-03-31 02:55 | Inpatient (IN) | payer MEDICAID, SELFPAY ==
--- OUTSIDE RECORDS SUMMARY | 2023-10-17 05:30 | XMS_ITS ---
Author Organization [facility] Address [address] [place] [address] Care Team Providers Care Deputy Chief Sheriff Name Role Phone Tip Martínez Primary Care Provider DR. Dennise Valdez [facility] [phone] REASON FOR VISIT Cleaning/Exam Social History Sex Assigned At : Social History Observation Description Sex Assigned At Female Encounters Encounter Location Date Provider Diagnosis [facility] [address] [place] [address] 10/17/2023 Dennise Valdez Plan Of Treatment No Information Progress Notes * Yahir NAVARROOB:2005 ( 19 yo F)Acc No.[id number]:10/17/2023 Patient: Maye Giang Provider: Rocio Valdez DMD :2005 A ge:18 Y S ex:Female Date:10/17/2023 Address: [id number] Pcp:Tip Martínez Subjective: * Chief Complaints: * C leaning/Exam * Electronic signature of DR. Dennise Valdez on 03/31/2025 at 04:53 AM CDT Sign off status: Pending * Provider: Rocio Valdez DMD Date: 10/17/2023 Generated for Edmond ng/Faucheg/eTransmitting on: 0 03/31/2025 04:53 AM CDT
[2025-03-31] VITALS (67 sets, daily range): BP systolic 85–150; BP diastolic 49–85; PULSE 51–125; RESP 16–17; TEMP 36.7–36.9; O2SAT 96–100; BMI 29.9
[2025-03-31 02:58] LABS: Hematocrit 35.1 % (36-47); Hemoglobin 11.60 g/dL (11.27-16.99); Mean Corpuscular HGB Conc 33.0 g/dL (30-55); Mean Corpuscular Hemoglobin 31.5 pg (27-33); Mean Corpuscular Volume 95.4 fl (85-98); Nucleated Red Blood Cells % 0 %; Platelet Count 252 10^3/cmm (157-399); Red Blood Count 3.68 10^6/uL (3.85-5.65); White Blood Count 13.47 10^3/uL (3.29-11.43)
[2025-03-31] MEDS: penicillin g potassium 5,000,000 UNIT in sodium chloride 0.9% (plus) 100 ML 100 UNIT IV (03:02)
[2025-03-31] MEDS: ROPivacaine premix 200 MG/100 ML PREMIX 10 MG EPIDURAL (04:51)
--- OUTSIDE RECORDS SUMMARY | 2025-03-31 04:54 | XMS_ITS | Patient Health Record ---
Author Organization [facility] Address [address] [place] [address] Care Team Providers Care Auto Wrecker Name Role Phone Tip Martínez Primary Care Provider [phone] Allergies No Known Allergies Reason For Referral No Information Medications Medication SIG (Take, Route, Frequency, Duration) Notes Start Date End Date Status Lexapro Active oxyCODONE HCl 10 MG Tablet 1 tablet as needed Orally every 8 hours; Duration: 2 days 01/18/2022 Not-Taking/PRN Peridex 0.12 % Solution 1/2 cap fill - swish for 1 minute. DO NOT SWALLOW Mouth/Throat 2x daily; Duration: 7 days 01/18/2022 Not-Taking/PRN SF 5000 Plus 1.1 % Cream as directed Dental 11/14/2023 Active Social History Sex Assigned At : Social History Observation Description Sex Assigned At Female Plan Of Treatment No Information Insurance Providers Payer Name Payer Address Payer Phone Subscriber Number Group Number Insured Name Patient Relationship to Insured Coverage Start Date Coverage End Date [employer] [address] [place] [address] [id number] Maye Navarro Self - patient is the insured
--- OUTSIDE RECORDS SUMMARY | 2025-03-31 04:54 | XMS_ITS | Clinical Summary ---
Author Organization [facility] Address [address] [facility] [place] [address] Care Team Providers Care Tape Deck Installer Name Role Phone Jeff Araya MD Primary Care Provider [phone] Allergies Active Allergy Reactions Criticality Noted Date Comments Adhesive Tape Rash Low 03/08/2009 Medications escitalopram oxalate (LEXAPRO) 5 mg tablet Take 5 mg by mouth daily. Active ergocalciferol, vitamin D2, (VITAMIN D ORAL) Take by mouth every 7 days. Active CYANOCOBALAMIN, VITAMIN B-12, ORAL Take by mouth daily. Active Active Problems Problem Noted Date Diagnosed Date Abnormal weight loss 04/11/2021 Overweight child 09/02/2018 History of palpitations 04/29/2018 Chronic fatigue 01/18/2018 Thyroid cyst 01/18/2018 Abnormal thyroid function test 01/18/2018 Dizziness 01/18/2018 Rhinitis 08/05/2014 Cough-nonspecific 08/05/2014 Finger, superficial foreign body (splinter) 09/2013 Excessive sleepiness- social 07/28/2013 Hypertrophy of nasal turbinates 05/20/2012 Herpes labialis 03/07/2010 Migraine headache 02/18/2009 Comments Yes Resolved Problems Problem Noted Date Diagnosed Date Resolved Date Nasal obstruction 05/20/2012 06/25/2012 Allergic rhinitis 05/20/2012 08/05/2014 Hypertrophy of nasal turbinates 04/28/2011 05/22/2011 Hypertrophy of tonsil with adenoids 04/21/2011 05/22/2011 PAUL (obstructive sleep apnea) 04/21/2011 06/25/2012 Immunizations Immunization Administration Dates Next Due (ADACEL/BOOSTRIX)(10 YR UP) TDAP VACCINE, 0.5ML, IM 02/14/2017 Hepatitis B Vaccine 2003 Meningococcal A Conjugate Vaccine IM 02/14/2017 Family History Medical History Relation Name Comments Healthy Father Rivas Heart Disease Maternal Aunt Yessi Martino Other Maternal Grandfather blockag e in neck Allergic Rhinitis Maternal Grandmother Chronic Sinusitis Maternal Grandmother Diabetes Maternal Grandmother GERD Maternal Grandmother High Cholesterol Maternal Grandmother Hypertension Maternal Grandmother Other Mother Cherelle mitral prolapse Colon Cancer Other 1 mgaunt Healthy Paternal Grandfather Heart Disease Paternal Grandmother Allergy-severe Neg Hx Anxiety Neg Hx Asthma Neg Hx Breast Cancer Neg Hx Cystic Fibrosis Neg Hx Eczema Neg Hx Immunodeficiency Neg Hx Tuberculosis Neg Hx Relation Name Status Comments Father Rivas Alive Maternal Aunt Yessi Martino Maternal Grandfather Maternal Grandmother Alive Mother Cherelle Alive Other 1 mgaunt Alive Other 2 [place]- Cousin Alive Other 3 [place] Alive Paternal Grandfather Alive Paternal Grandmother Alive Social History Tobacco Use Types Packs/Day Years Used Date Smoking Tobacco: Never Smokeless Tobacco: Never Tobacco Cessation:Counseling Given: Not Answered Alcohol Use Standard Drinks/Week Comments No 0 (1 standard drink = 0.6 oz pur e alcohol) Feeling Safe Answer Date Recorded Are you in a relationship wi th someone who hurts you emotionally and/or physically? No 07/31/2024 Comments Yes Sex and Gender Information Value Date Recorded Sex Assigned at Not on file Legal Sex Female 3:41 AM ASTRO TECHNICIAN Gender Identity Not on file Sexual Orientation Not on file Last Filed Vital Signs Vital Sign Reading Time Taken Comments Blood Pressure 113/52 07/31/2024 8:15 PM ASTRO TECHNICIAN Pulse 69 07/31/2024 8:15 PM ASTRO TECHNICIAN Temperature 36.6 C (97.8 F) 07/31/2024 6:29 PM ASTRO TECHNICIAN Respiratory Rate 20 07/31/2024 6:29 PM ASTRO TECHNICIAN Oxygen Saturation 100% 07/31/2024 8:15 PM ASTRO TECHNICIAN Inhaled Oxygen Concentration - - Weight 74.6 kg (164 lb 6.4 oz) 07/31/2024 6:29 P M ASTRO TECHNICIAN Height 165.1 cm (5' 5 ) 07/31/2024 6:29 PM ASTRO TECHNICIAN Body Mass Index 27.36 07/31/2024 6:29 PM ASTRO TECHNICIAN Plan of Treatment Health Maintenance Due Date Last Done Comments HPV VACCINES (1 - 3-dose series) 10/02/2018 Preventative Visit- Commercial 07/09/2024 02/14/2017 CERVICAL CANCER SCREENING 10/02/2024 HPV/Cotest (21-29) 10/02/2024 PAP SMEAR 10/02/2024 CHLAMYDIA SCREENING (ANNUAL) 11-24 YEARS 11/06/2024 11/07/2023 INFLUENZA VACCINE (#1) 2025 04/25/2018 DTAP/TDAP/TD VACCINES (2 - T d or Tdap) 02/14/2027 02/14/2017 RSV VACCINE (60+ or ) (1 - 1-dose 75+ series) 10/02/2078 HEPATITIS B VACCINES Completed 04/07/2004, 02/01/2004, 2003, Additional history exists Procedures Procedure Name Priority Date/Time Associated Diagnosis Comments GC/CHLAMYDIA, UROGENITAL Stat 11/07/2023 6:34 PM CDT from Last 3 Months or Most Recently Relevant to Health Maintenance Results * GC/CHLAMYDIA, UROGENITAL (11/07/2023 6:34 PM CDT) CHLAMYDIA DNA AMPLIFICATION NOT DETECTED Not Detected 11/08/2023 6:33 PM CDT [facility] GC DNA AMPLIFICATION NOT DETECTED Not Detected 11/08/2023 6:33 PM CDT [facility] Genital SPECIMEN FROM VAGINA / Unknown Collection / Unknown 11/07/2023 6:34 PM CDT 11/07/2023 7:38 PM CDT Narrative [facility] - 11/08/2023 6:33 PM CDT Results should not be used for the evaluation of suspected sexual abuse or for other medico-legal indications. The only legally accepted results are from culture. Results cannot be used to assess therapeutic success or failure since nucleic acids may persist following antimicrobial therapy. Traci Bone MD MICROBIOLOGY - GENERAL ORDERAB LES Final Result [facility] # [id number] [address] [facility] [place] [address] from Last 3 Months or Most Recently Relevant to Health Maintenance Insurance [place]ICAID [place] Care Teams Tape Deck Installer Relationship Specialty Start Date End Date Jeff Araya MD [address] [place] [id number] PCP - General Family Practice 03/15/17
--- NOTE | 2025-03-31 05:02 | P.ANESASSM_ITS ---
Pre-Anesthetic Assessment Height/Weight: Height 1.65 m Weight 81.647 kg Pulse BP Pulse Ox O2 Del Method 74 112/56 99 Room Air 03/31/25 04:59 03/31/25 04:57 03/31/25 04:59 03/31/25 02:32 Preop Diagnosis: intrauterine labor epidural Familial anesthetic complications: none Was Beta Hima taken within 24 hours: N/A Was Clonidine taken within 24 hours: N/A Social No alcohol and No tobacco Exam alert, oriented x 3 and clear to auscultation bilaterally Airway Mallampati: Class II Dentition: full History/ROS No significant history except as noted Pulmonary None reported CV/HEM None reported None reported Hepatic None reported GI Gastroesophageal Reflux Disease Metabolic None reported Musc/skel None reported Neuropsych None reported Anesthetic Plan ASA status: 2 Anesthesia: Anesthesia Evaluation and MAC Risk of > 500 ml blood loss (7ml/kg in children): Yes, adequate IV access and fluids planned Medications/Allergies Home Medications ?Medication ?Instructions ?Recorded ?Confirmed ?Last Taken ?Type mecobalamin (vitamin B12) 1,000 1,000 mcg sublingual D AILY 30 days 02/26/24 07/28/24 Unknown Rx mcg disintegrating #30 tabs tablet,sublingual cholecalciferol (vitamin D3) 1,250 50,000 unit PO SHAUNA Y #12 caps 05/15/24 07/28/24 Unknown Rx mcg (50,000 unit) capsule metoclopramide HCl 5 mg tablet 5 mg PO Q6H PRN nausea and 08/20/24 Unknown Rx (Reglan) vomiting #30 tabs escitalopram oxalate 10 mg tablet See Rx Instructions .Route 01/01/25 Unknown Rx .COMPLEX #90 tabs Allergies Allergy/AdvReac Type Severity Reaction Status Date / Time No Known Allergies Allergy Verified 03/31/25 02:28 Current Medications Generic Name Dose Route Start Last Admin Trade Name Freq PRN Reason Stop Dose Admin Dextrose/Lactated Ringer's 1,000 mls @ 125 mls/hr 03/31/25 02:37 03/31/25 04:25 Dextrose 5%-Lactated Ringers IV 125 mls/hr .Q8H PRN Administration labor Ropivacaine 200 mg in 100 mls @ 10 mls/hr 03/31/25 02:45 03/31/25 04:51 Naropin Premix EPIDURAL 10 mls/hr .Q10H MARIO ALBERTO Administration Sodium Chloride 1,000 mls @ 999 mls/hr 03/31/25 02:41 03/31/25 03:01 Sodium Chloride 0.9% IV 999 mls/hr .Q1H1M PRN Administration See label comments PFSH Anesthesia Medical History (Updated 08/24/24 @ 00:00 by ENEIDA Tran) Acute bacterial sinusitis Fever blister Corpus luteum cyst of left ovary Pelvic pain Vitamin D deficiency Vaginal yeast infection Elevated hemoglobin Vaginal discharge Thyroid cyst Fatigue Elevated alkaline phosphatase level Anemia Encounter for screening for cardiovascular disorders Medication management Chronic idiopathic constipation Lower respiratory infection No pertinent past medical history neghx: htn,dm,thyroid,dvt/pe PCP: Libia Altamirano History of recurrent vaginal discharge Surgical History H/O removal of cyst (~2014) cyst on left hand, fifth finger removed Family History Family/Other Cancer great uncle, leukemia, paternal Mother Hypertension Hyperlipidemia Grandfather Stroke maternal Grandmother Hypertension maternal Hyperlipidemia maternal Diabetes maternal Denies family history of Colon cancer Ovarian cancer Breast cancer Uterine cancer Thyroid disease Social History Smoking and tobacco/nicotine status: never used tobacco/nicotine Alcohol intake: never Substance/Drug Use: never Adopted: No Lives independently: Yes Household members: family Housing: House Data Anesthesia 03/31/25 02:43 Short CBC 03/31/25 Range/Units 02:43 WBC 13.47 H (3.29-11.43) 10^3/uL Hgb 11.60 (11.27-16.99) g/dL Hct 35.1 L (36-47) % MCV 95.4 (85-98) fl Plt Count 252 (157-399) 10^3/cmm Neut % (Auto) 81.6 % Neut # (Auto) 10.99 H (1.8-7.7) 10^3/uL Blood Bank 03/31/25 02:43 Blood Type O Positive Rho(D) Type Rh positive Antibody Screen Negative Anesthesia Procedures Epidural Time Out Performed: Yes Consents Signed: Procedure Consent Consent: requested by attending/covering physician, from patient, risks and benefits reviewed and patient agrees to proceed Lumbar Level: L4-L5 Epidural position: sitting Epidural procedure: sterile prep of area, 1% lidocaine to numb the area, 18 g needle, negative for paresthesia passed, neg for paresthesia, test dose given, 1.5% xylocaine 1:200k epi, 0.2% Ropivacaine bolus ml (5), placed PCEA, no systemic response, sterile dressing applied, L.U.D. no apparent complications and 0.2% Ropiavacaine @ mls/hr (10) Additional Comments: Caleb 6cm, catheter easily threaded to 5cm in the space. VS monitored throughout and remained stable, pt educated on CONTINUOUS IMPROVEMENT FACILITATOR and reports adequate pain relief with epidural
[2025-03-31] MEDS: ondansetron 2 mg/ML SDV 2 mL 4 MG IVP (05:29)
[2025-03-31] MEDS: oxytocin 30 UNIT/500 ML BAG 600 UNIT IV (07:09)
--- NOTE | 2025-03-31 07:35 | PM.OPHPUD ---
Labor & Delivery H&P Update Date of Procedure: March 31, 2025 Date H&P Performed: 03/25/25 Admission Diagnosis: IUP at 28 weeks 6 days gestation Active labor Group B strep positive Preop diagnosis: intrauterine Planned procedure: Expectant management of labor and delivery
--- NOTE | 2025-03-31 07:36 | P.PCNOB_ITS ---
Delivery Note: Date of delivery: March 31, 2025 Procedure: Normal spontaneous vaginal delivery Delivering Physician: Lynne Romero MD Estimated blood loss (mL): 300 Pre-Delivery Course: The patient had routine care at [facility]. There were no complications during the . labs: Blood type O+ antibody negative, hepatitis B nonreactive, hepatitis C nonreactive, HIV nonreactive, rubella immune, gonorrhea negative, chlamydia positive treated with test of cure negative, RPR nonreactive, Q jose low risk, she passed her glucose tolerance test, she had GBS positive urine. Delivery: This is a 19-year-old G1, P0 at 38 weeks 6 days gestation who presented to labor and delivery in active labor. She was already 4 to 5 cm dilated on admission. She received an epidural for pain management. She had spontaneous rupture of membranes with meconium stained fluid. Her labor progressed well on its own and she had a normal spontaneous vaginal delivery of a viable female weight 7 pounds 4 ounces, Apgars 8 and 9 over an intact perineum. The was suctioned at delivery and placed on the mother's chest. The cord was clamped and cut. The placenta was delivered grossly intact and normal to inspection. There was a second-degree perineal laceration that was sutured using 3-0 chromic. Mother and were doing well after delivery. History History History 0 Term 0 0 Miscarriages/Ectopic 0 Living Children 0 A&P PDMP PDMP Reviewed: Not Reviewed Coding Level of Care Code Acute Code for Chg Fwd
[2025-03-31] MEDS: benzocaine-menthol 78 gm Canister 1 SPRAY TOPICAL (09:04)
[2025-03-31] MEDS: PRENATAL VIT NO.130/IRON/FOLIC 1 EACH TABLET PO (09:04)
[2025-03-31 20:46] LABS: Hematocrit 29.8 % (36-47); Hemoglobin 9.80 g/dL (11.27-16.99); Mean Corpuscular HGB Conc 32.9 g/dL (30-55); Mean Corpuscular Hemoglobin 32.0 pg (27-33); Mean Corpuscular Volume 97.4 fl (85-98); Platelet Count 210 10^3/cmm (157-399); Red Blood Count 3.06 10^6/uL (3.85-5.65); White Blood Count 13.46 10^3/uL (3.29-11.43)
[2025-04-01 04:27] VITALS: BP 115/69; PULSE 73; RESP 16; TEMP 36.6; O2SAT 97
[2025-04-01] MEDS: PRENATAL VIT NO.130/IRON/FOLIC 1 EACH TABLET PO (08:27)
[2025-04-01 10:40] VITALS: BP 120/71; PULSE 87; RESP 17; TEMP 36.8; O2SAT 98
[2025-04-01 16:31] VITALS: BP 118/73; PULSE 90; RESP 16; TEMP 36.8; O2SAT 99
--- NOTE | 2025-04-01 17:36 | P.PN_ITS ---
Subjective 2 Subjective: day #1 doing well. She has decreased vaginal bleeding, is ambulating and tolerating a regular diet. Vitals/I&O/Wt Last Vital Signs Temp 98.3 F 04/01/25 16:31 Pulse 90 04/01/25 16:31 Resp 16 04/01/25 16:31 BP 118/73 04/01/25 16:31 Pulse Ox 99 04/01/25 16:31 O2 Del Method Room Air 04/01/25 16:31 Weight last 48 hrs Weight 81.647 kg Physical Exam 2 Narrative: Alert and oriented, sitting up in bed, heart regular rate and rhythm, lungs clear to auscultation bilaterally, abdomen is soft and nontender, fundus is firm, extremities have 2+ edema but no calf tenderness Urinary Catheter Management: Henderson Latex: Cath Placed During This Visit: yes, but has since been removed by the nurse Reason for Continuing Indwelling Catheter: Other Urinary Catheter Date of Insertion: 03/31/25 Urinary Catheter Time of Insertion: 05:22 Date Urinary Catheter Removed: 03/31/25 Time Urinary Catheter Discontinued: 06:30 Data 03/31/25 20:22 A&P Assessment and plan 1. Normal spontaneous vaginal delivery: Routine care PDMP PDMP Reviewed: Not Reviewed Attestations 2 Medical Necessity Statement*: Routine care Coding Level of Care Code Acute Code for Chg Fwd Diagnoses Normal spontaneous vaginal delivery O80
[2025-04-01 22:55] VITALS: BP 115/72; PULSE 89; RESP 16; TEMP 36.7; O2SAT 99
[2025-04-02 08:09] VITALS: BP 122/72; PULSE 100; RESP 18; TEMP 36.3
[2025-04-02] MEDS: PRENATAL VIT NO.130/IRON/FOLIC 1 EACH TABLET PO (08:49)
--- NOTE | 2025-04-02 13:11 | ANE.PACU2 ---
Inpatient post-anesthesia follow up: Airway intact: Yes Vital signs: Temperature 97.4 F Pulse Rate 100 Respiratory Rate 18 Blood Pressure 122/72 Pulse Oximetry 99 Oxygen Delivery Me thod Room Air Oxygen Flow Rate Fraction of Inspir ed Oxygen Hydration adequate: Yes Nausea and vomiting: No Pain level: 1 Mental status: Baseline Epidural Start/End: Epidural Start Date: 03/31/25 Epidural Start Time: 04:30 Epidural End Date: 03/31/25 Epidural End Time: 09:30
[2025-04-02 14:00] VITALS: BP 124/79; PULSE 99; RESP 16; TEMP 36.8
--- NOTE | 2025-04-02 17:00 | P.DS_ITS ---
Discharge Providers Date of Admission: 03/31/25 02:55 Date of Discharge: April 02, 2025 Attending Provider at Admission: Lynne Romero MD Attending Provider at Discharge: Lynne Romero MD Primary Care Provider: MAGNO Quiroga Reason for Visit Reason for Visit: ctx Hospital Course Hospital Course This is a 19-year-old G1 now P1 who had a normal spontaneous vaginal delivery of a viable female infant. Mother has done well she is ambulating, tolerating a regular diet, has decreased vaginal bleeding. was kept an extra night for elevated bilirubin. is likely being discharged home today but either way mother will be discharged home as she is doing well. Physical Exam Narrative: Alert and oriented, heart regular rate and rhythm, lungs clear to auscultation bilaterally, abdomen is soft and nontender, fundus is firm, extremities have 1+ edema but no calf tenderness Urinary Catheter Management: [place] Latex: Cath Placed During This Visit: yes, but has since been removed by the nurse Reason for Continuing Indwelling Catheter: Other Urinary Catheter Date of Insertion: 03/31/25 Urinary Catheter Time of Insertion: 05:22 Date Urinary Catheter Removed: 03/31/25 Time Urinary Catheter Discontinued: 06:30 Discharge Data Studies Completed and Pending Laboratory Results WBC 13.46 10^3/uL (3.29-11.43) H 03/31/25 20:22 RBC 3.06 10^6/uL (3.85-5.65) L 03/31/25 20:22 Hgb 9.80 g/dL (11.27-16.99) L 03/31/25 20:22 Hct 29.8 % (36-47) L 03/31/25 20:22 MCV 97.4 fl (85-98) 03/31/25 20:22 MCH 32.0 pg (27-33) 03/31/25 20:22 MCHC 32.9 g/dL (30-55) 03/31/25 20:22 RDW 12.8 % (12.1-15.1) 03/31/25 20:22 Plt Count 210 10^3/cmm (157-399) 03/31/25 20:22 MPV 10.7 fL (7.4-10.4) H 03/31/25 20:22 Neut % (Auto) 81.6 % 03/31/25 02:43 Lymph % (Auto) 11.5 % 03/31/25 02:43 [place] % (Auto) 5.3 % 03/31/25 02:43 Eos % (Auto) 0.5 % 03/31/25 02:43 Baso % (Auto) 0.3 % 03/31/25 02:43 Neut # (Auto) 10.99 10^3/uL (1.8-7.7) H 03/31/25 02:43 Lymph # (Auto) 1.6 10^3/uL (0.8-4.8) 03/31/25 02:43 [place] # (Auto) 0.7 10^3/uL (0.2-0.9) 03/31/25 02:43 Eos # (Auto) 0.1 10^3/uL (0.0-0.8) 03/31/25 02:43 Baso # (Auto) 0.0 10^3/uL (0.0-0.1) 03/31/25 02:43 Nucleated RBC % (auto) 0 % 03/31/25 02:43 Nucleated RBCs # 0.0 /100WBC 03/31/25 02:43 Blood Type O Positive 03/31/25 02:43 Rho(D) Type Rh positive 03/31/25 02:43 Antibody Screen Negative 03/31/25 02:43 Vitals Last Vital Signs Temp 98.3 F 04/02/25 14:00 Pulse 99 04/02/25 14:00 Resp 16 04/02/25 14:00 BP 124/79 04/02/25 14:00 Pulse Ox 99 04/01/25 22:55 O2 Del Method Room Air 04/02/25 08:09 Discharge Plan Discharge Patient Disposition: Home Condition: Stable Prescriptions: Continued escitalopram oxalate 10 mg tablet See Rx Instructions .ROUTE .COMPLEX Qty: 90 1RF Dose Instruction: TAKE 1 TABLET BY MOUTH DAILY Rx Instructions: TAKE 1 TABLET BY MOUTH DAILY Vitamin Plus Low Iron 27 mg iron- 1 mg tablet 1 tab PO DAILY Referrals: Lynne Romero MD [Physician, Family Practice] - 04/30/25 10:30 am Discharge Diet: Usual diet Discharge Activity: Limit activity as instructed Patient Instructions: Depression (DC), Opioid Safety (DC), Preeclampsia and Eclampsia After Delivery (GEN), Hemorrhage (DC), OB Discharge Report, OB Food/Drug Interaction Guide, Opioid Safety, OB Home Care, OB Vaginal Deliveries, Patient Portal & Joyce Instructions, Abnormal Bleeding Activity Restrictions/Additional Instructions: Nothing per vagina for 6 weeks Discharge Attestations Time Spent in Discharge Care*: less than 30 min Quality Metrics Clinical Quality Measures [ No reported AMI, CVA or VTE this stay] Coding Level of Care Code Acute Code for Chg Fwd
[2025-04-02 19:14] VITALS: BP 118/68; PULSE 99; RESP 16; TEMP 36.7; O2SAT 99
== END 2025-04-02 19:17 | disposition home or self-care (01) | DRG 806 ==
LOC: OPOB 04:52 → OBGYN 04:52
PROVIDERS: Admitting Provider Family Medicine; PCP Nurse Practitioner Family; Visit Provider Family Medicine
DX: O99.824 Streptococcus B carrier state complicating childbirth (principal); O98.82 Other maternal infectious and parasitic diseases complicating childbirth; Z37.0 Single live birth; O77.0 Labor and delivery complicated by meconium in amniotic fluid; O70.1 Second degree perineal laceration during delivery; Z3A.38 38 weeks gestation of pregnancy; K21.9 Gastro-esophageal reflux disease without esophagitis; E55.9 Vitamin D deficiency, unspecified; A74.9 Chlamydial infection, unspecified; O99.62 Diseases of the digestive system complicating childbirth; O99.284 Endocrine, nutritional and metabolic diseases complicating childbirth
CPT/HCPCS: 36415; 51702; 59025; 59409; 85025; 85027; 86850; 86900; 99211; J2405; J2540; J2590; J2795; J7030; J7121; J9999